=== PATIENT | female | born 1960 | race Caucasian/White ===

== ENCOUNTER 2018-08-18 21:30 | Inpatient (IN) | payer OTHER ==
[~2018-08-18] VITALS: Ht 154.9 cm; Wt 90.7 kg
--- NOTE | ~2018-08-18 | PROC ---
[address] [address] PROCEDURE REPORT Name: EL CALLAHAN Room: [address] IN M.R.#: [id number] Admission: 08/18/18 Attend Phys: Skyler Cantu MD Discharge: 08/22/18 Date of : 64 Report #: [id number] THIS REPORT FOR: //name// For GI report, please see the Provation report in Perceptive 7 content. By: [id number] Records Staff BEN /KAJAL
[~2018-08-18 21:30] MED LIST: ANTIDEPRESSANT; BIAXIN 500 MG500 M2 PO; BUTALB-APAP-CA1 EACH PO; CELEXA20 MG PO; CIPROFLOXACIN500 M1 PO; DIFLUCAN150 MG PO; ERY-TAB333 MG PO; ETODOLAC200 MG; FIORICET 50-301 EACH PO; FLOMAX PO; IBUPROFEN 600600 M1 PO; METHYLPREDNISOLO4 M1 PO; MOBIC7.5 M1 PO; NOHOMEMEDICATIONS; NYSTATIN 1100000 U/M PO; PAXIL 20 MG TAB20 MG PO; PERCOCET 5-3251 EACH PO; REGLAN 10 MG TA10 MG PO; TRAMADOL 50 MG50 MG PO; VALIUM10 MG PO; VENTOLIN HFA INH8 GM INH; XANAX 0.5 MG0.5 MG PO; XANAX XR0.5 MG PO; ZANTAC 150MG T150 M1 PO; ZOLOFT25 MG PO
[2018-08-18 21:35] VITALS: BP 125/70
[2018-08-18] MEDS ORDERED: NAPROSYN500 MG (21:41)
[2018-08-18] MEDS ORDERED: FLAGYL500 MG (21:42)
[2018-08-18] MEDS ORDERED: CIPRO500 MG (21:42)
[2018-08-18 21:58] LABS: URINE BLOOD NEGATIVE (Negative); URINE CLARITY CLEAR; URINE COLOR BROWN; URINE GLUCOSE-RANDOM TRACE (Negative); URINE KETONES 1+ (Negative); URINE LEUKOCYTES-REFLEX 1+ (Negative); URINE PROTEIN 1+ (Negative); URINE SPECIFIC GRAVITY >= 1.030 (1.005-1.030)
[2018-08-18 22:00] LABS: ICTOTEST (BILI CONFIRMATORY) Negative (Negative); URINE BILIRUBIN 2+ (Negative); URINE NITRITE-REFLEX POSITIVE (Negative)
[2018-08-18 22:10] LABS: HYALINE CASTS >10 Many /LPF (None Seen); MUCUS 4-6 Moderate strn/LPF (None Seen); SQUAMOUS >10 Many /LPF (0-3)
[2018-08-18 22:11] LABS: BACTERIA-REFLEX 1-9 Few /HPF (None Seen); CRYSTALS None Seen /LPF (None Seen); URINE RBC 0-2 Rare /HPF (0-2); URINE WBC-REFLEX 0-5 Rare /HPF (0-5)
[2018-08-18 22:14] LABS: ABSOLUTE BASOPHILS 0.1 thou/uL (0.0-0.2); ABSOLUTE EOSINOPHILS 0.1 thou/uL (0.0-0.7); ABSOLUTE LYMPHOCYTES 0.8 thou/uL (0.8-5.3); ABSOLUTE MONOCYTES 0.4 thou/uL (0.0-1.2); ABSOLUTE NEUTROPHILS 5.8 thou/uL (1.6-8.1); BASOPHILS 0.8 %; EOSINOPHILS 1.9 %; HEMATOCRIT 43.4 % (37.0-47.0); HEMOGLOBIN 14.5 gm/dL (12.0-15.0); LYMPHOCYTES 11.4 %; MCH 30.7 pg (26.0-34.0); MCHC 33.3 g/dL (28.0-37.0); MONOCYTES 5.3 %; MPV 9.9 fl. (7.2-11.1); NUCLEATED RBCS 0 /100WBC; PLATELET COUNT* 221 thou/uL (150-400); POLYS 80.6 %; RBC 4.71 mil/uL (4.20-5.00); RDW-CV 13.8 % (10.5-14.5); WBC 7.2 thou/uL (4.0-11.0)
[2018-08-18 22:20] LABS: CALCIUM 9.5 mg/dL (8.5-10.1); CREATININE 1.1 mg/dL (0.6-1.3); POTASSIUM 3.9 mmol/L (3.5-5.1)
[2018-08-18 22:21] LABS: APTT 26.4 Seconds (25.0-31.3); INR 1.1; PROTIME 10.8 Seconds (9.20-11.50)
[2018-08-18 22:25] LABS: ALBUMIN 3.9 g/dL (3.4-5.0); TOTAL BILIRUBIN 0.6 mg/dL (<0.1-1.0); TOTAL PROTEIN 7.8 g/dL (6.4-8.2)
[2018-08-18 23:32] VITALS: BP 123/54
[2018-08-19] VITALS: BP 136/70
--- NOTE | 2018-08-19 04:53 | NUR ---
PATIENT SLEPT WELL AFTER ASSESSMENT COMPLETED. PT WITH NS INFUSING PER DR ORDER IN LT AC. PT USES CALL LIGHT APPROPRIATELY FOR ASSISTANCE TO BATHROOM. PT SAYS URINE IS DARK TEA COLORED; NOT OBSERVED. PT WITH FLUIDS INFUSING PER DR ORDER. PT DENIES PAIN/NAUSEA ON THIS SHIFT. FREQUENTLY USED ITEMS AND CALL LIGHT WITHIN REACH. SIDERAILS UPX2 AND BED ALARM ON. WILL CONTINUE TO MONITOR.
[2018-08-19 08:30] VITALS: BP 91/42
[2018-08-19 08:57] LABS: CHOLESTEROL 92 mg/dL (<200); HDL CHOLESTEROL 46 mg/dL (>40); LDL CHOLESTEROL 40 mg/dL (<100); TRIGLYCERIDE 34 mg/dL (<150); VLDL 7 mg/dL (<40)
[2018-08-19 09:04] LABS: SERUM ASSESSMENT Clear
--- NOTE | 2018-08-19 11:14 | EKG ---
[place] [address] ELECTROCARDIOGRAM REPORT Name: LONDONEL Carmelina Room: [address] ADM IN .R.#: [id number] Admission: 08/18/18 Attend Phys: Skyler Cantu MD Discharge: Date of : 64 Report #: [id number] THIS REPORT FOR: //name// [facility] ED Test Date: 2018-08-18 Test Time: 22:14:48 Pat Name: EL CALLAHAN Department: Room: [facility] Gender: F Food Service Associate: Irene HUTCHINS : 1960 Requested By: Viry Gallagher Order Number: [id number] MD: Ameya Yang Measurements Intervals [place] Rate: 59 P: 33 DC: 133 QRS: 5 QRSD: 93 T: 1 QT: 403 QTc: 400 Interpretive Statements Sinus rhythm Abnormal R-wave progression, early transition Compared to ECG 12/23/2014 22:06:14 No significant changes Electronically Signed On 08-19-2018 11:14:37 CDT by Ameya Yang [email or web address] <ELECTRONICALLY SIGNED> By: Ameya Yang MD, FACC 08/19/18 1114 13 Ameya Yang MD, FAC /EPI
[2018-08-19 12:06] VITALS: BP 118/60
[2018-08-19 13:30] LABS: URINE BILIRUBIN NEGATIVE (Negative); URINE BLOOD NEGATIVE (Negative); URINE CLARITY CLEAR; URINE COLOR YELLOW; URINE GLUCOSE-RANDOM NEGATIVE (Negative); URINE KETONES NEGATIVE (Negative); URINE LEUKOCYTES-REFLEX TRACE (Negative); URINE NITRITE-REFLEX NEGATIVE (Negative); URINE PROTEIN NEGATIVE (Negative); URINE SPECIFIC GRAVITY >= 1.030 (1.005-1.030); URINE UROBILINOGEN 0.2 E.U./dl (0.2-1.0)
--- NOTE | 2018-08-19 13:47 | 2DMMODE ---
[place] [address] 2 D/M-MODE ECHOCARDIOGRAM Name: EL CALLAHAN Room: [address] IN [facility]#: [id number] Admission: 08/18/18 Attend Phys: Skyler Cantu, Discharge: Date of : 64 Date of Service: 08/19/18 1347 Report #: [id number] THIS REPORT FOR: //name// APPROVED REPORT Study performed: 08/19/2018 11:14:18 EXAM: Comprehensive 2D, Doppler, and color-flow Echocardiogram Patient Location: In-Patient Room #: [facility] Status: routine BSA: 1.89 HR: 63 bpm BP: 136/70 mmHg Rhythm: NSR Other Information Study Quality: Good Indications Prior stroke, UTI, encephalopathy Echo Enhancing Agent Indication: Rule out Shunt Agent(s) / Amount(s) Used: Agitated Saline 10 cc 2D Dimensions IVSd: 9.20 (7-11mm) LVOT Diam: 18.82 (18-24mm) LVDd: 42.08 mm PWd: 8.35 (7-11mm) Ascending Ao: 29.19 (22-36mm) LVDs: 27.94 (25-40mm) Aortic Root: 31.35 mm Volumes Left Atrial Volume (Systole) LA ESV Index: 23.40 mL/m2 Aortic Valve AoV Peak Carmine.: 1.36 m/s AO Peak Gr.: 7.36 mmHg LVOT Max P.80 mmHg AO Mean Gr.: 3.62 mmHg LVOT Mean P.07 mmHg LVOT Max V: 1.10 m/s AO V2 VTI: 29.18 cm LVOT Mean V: 0.64 m/s LILIANA (VTI): 2.44 cm2 LVOT V1 VTI: 25.63 [place] [address] 2 D/M-MODE ECHOCARDIOGRAM Name: EL CALLAHAN Room: [address] IN [facility]#: [id number] Admission: 08/18/18 Attend Phys: Skyler Cantu, Discharge: Date of : 64 Date of Service: 08/19/18 1347 Report #: [id number] Mitral Valve E/A Ratio: 1.72 MV Decel. Time: 186.47 ms MV E Max Carmine.: 0.87 m/s MV PHT: 54.08 ms MVA (PHT): 4.07 cm2 TDI E/Lateral E': 5.44 E/Medial E': 8.70 Medial E' Carmine.: 0.10 m/s Lateral E' Carmine.: 0.16 m/s Pulmonary Valve PV Peak Carmine.: 0.75 m/s PV Peak Gr.: 2.28 mmHg Tricuspid Valve RAP Estimate: 5.00 mmHg TR Peak Gr.: 22.84 mmHg RVSP: 28.00 mmHg PA Pressure: 28.00 mmHg Left Ventricle The left ventricle is normal size. There is normal LV segmental wall motion. There is normal left ventricular wall thickness. Left ventricular systolic function is normal. The left ventricular ejection fraction is within the normal range. LVEF is 55-60%. The left ventricular diastolic function is normal. Right Ventricle The right ventricle is normal size. The right ventricular systolic function is normal. Atria The left atrium size is normal. Interatrial septum is intact without evidence of ASD or PFO.Negative bubble study. The right atrium size is normal. Aortic Valve The aortic valve is normal in structure. No aortic regurgitation is present. There is no aortic valvular stenosis. Mitral Valve The mitral valve is normal in structure. Trace mitral regurgitation. No evidence of mitral valve stenosis. Tricuspid Valve The tricuspid valve is normal in structure. [place] [address] 2 D/M-MODE ECHOCARDIOGRAM Name: LONDONEL Room: [address] IN M.R.#: [id number] Admission: 08/18/18 Attend Phys: Skyler Cantu, Discharge: Date of : 64 Date of Service: 08/19/18 1347 Report #: [id number] regurgitation. No pulmonary hypertension. Pulmonic Valve The pulmonary valve is normal in structure. There is no pulmonic valvular regurgitation. Great Vessels The aortic root is normal in size. IVC is normal in size and collapses >50% with inspiration. Pericardium There is no pericardial effusion. <Conclusion> LVEF is 55-60%. There is normal LV segmental wall motion. There is no aortic valvular stenosis. No aortic regurgitation is present. Trace mitral regurgitation. Interatrial septum is intact without evidence of ASD or PFO.Negative bubble study. <ELECTRONICALLY SIGNED> By: Ameya Yang MD, FACC 08/19/181346 46 46 Ameya Yang MD, FACC /INF
--- NOTE | 2018-08-19 15:10 | NUR ---
SW met with pt to complete initial assessment, introduce self, and SW role. Pt was slow to respond but alert an oriented. Pt was out of room earlier in the day for MRI and ultrasound and then during SW assessment, tech came to prep for 2 part stress test. Pt lives at home with her son who is in between jobs. SW to continue to follow to assist with safe dc planning.
[2018-08-19 16:00] VITALS: BP 138/87
--- NOTE | 2018-08-19 18:11 | NUR ---
ALERT AND ORIENTED X4. UP STAND BY ASSIST IN ROOM. IV IS PATENT AND INFUSING. PAIN BEING MANAGED WITH IV PAIN MEDICATION. DENIES NAUSEA. OFF UNIT MULTIPLE TIMES TODAY FOR TESTS. VSS ON ROOM AIR. HOURLY ROUNDS HAVE BEEN MAINTAINED THROUGHOUT SHIFT WHILE ON UNIT. CALL LIGHT IS WITHIN REACH. NURSING WILL CONTINUE TO MONITOR.
[2018-08-19 20:19] VITALS: BP 104/49
[2018-08-20] VITALS: BP 106/77
[2018-08-20 04:00] VITALS: BP 126/51
--- NOTE | 2018-08-20 04:48 | NUR ---
ASSESSMENT COMPLETE. PT ALERT AND ORIENTED X4. PT GIVEN PAIN MEDICATION ONCE DURING THE NIGHT. PT IS ON TELE MONITOR, GUNNER IN 40'S AND 50'S PART OF THE NIGHT. PT ON CONTINOUS PULSE OX DURING THE NIGHT WITH ADEBarneyAUTE SATS ON ROOM AIR. PT DENIES SOA. PT HAS IV FLUIDS INFUSING. PT HAS BEEN NPO SINCE MIDNIGHT FOR STRESS TEST THIS AM. PT IS FALL RISK, BED ALARM ON. TURNS SELF IN BED. UP WITH STANDBY ASSIST TO BATHROOM. SEE ASSESSMENT AND VITALS FOR OTHER DETAILS. CALL LIGHT WITHIN REACH, WILL CONTINUE PLAN OF CARE
[2018-08-20 05:24] LABS: ALBUMIN 3.1 g/dL (3.4-5.0); CREATININE 0.8 mg/dL (0.6-1.3); MAGNESIUM 2.1 mg/dL (1.8-2.4); POTASSIUM 4.8 mmol/L (3.5-5.1); TOTAL BILIRUBIN 0.1 mg/dL (<0.1-1.0); TOTAL PROTEIN 5.9 g/dL (6.4-8.2)
--- NOTE | 2018-08-20 10:16 | NUR ---
PT LEFT UNIT WITH PACU NURSE FOR STRESS TEST, IV PLACED BY INFUSIONS NURSE.
--- NOTE | 2018-08-20 10:59 | NUR ---
PT RETURNED FROM STRESS TEST. PT IS IS ALERT AND ORIENTED. ON ROOM AIR WITH CLEAR LUNG SOUNDS. PT SKIN IS DRY AND INTACT. PT C/O PAIN IN ABD AND HEADACHE. IV FENTANYL ADMINISTERED. WILL CONTINUE TO MONITOR.
--- NOTE | 2018-08-20 12:54 | CARDNUC ---
[place] [address] CARDIAC NUCLEAR IMAGING REPORT Name: EL CALLAHAN Room: [address] IN [facility]#: [id number] Admission: 08/18/18 Attend Phys: Skyler Cantu, Discharge: Date of : 64 Date of Service: 08/20/18 1254 Report #: [id number] THIS REPORT FOR: //name// APPROVED REPORT Imaging Protocol: Rest Tc-99m/Stress Tc-99m 2 days Study performed: 08/19/2018 10:44:00 Indication: Chest pain Patient Location: In-Patient Stress Tech: Deepa Luque Stress Nurse: Dominique Antonio RN NM Tech:NICHOLAS Jorge Ht: 5 ft 0 in Wt: 200 lbs BSA: 1.87 m2 BMI: 39.05 Medical History Medical History: septicemia, diverticulosis Medications: aspirin 81, enoxaprain Allergies: codeine, hydrocodone Cardiac Risk Factors: age Previous Cardiac Procedures: none Exercise History: Indeterminate Resting Data Rest SPECT myocardial perfusion imaging was performed in supine position 30 minutes following the intravenous injection of 39.1 mCi of Tc-99m Sestamibi. Time of rest injection: 1405 Date: 08/19/2018 Time of rest imagin The images were gated to evaluate regional wall motion and calculate left ventricular ejection fraction. Administration Route: IV Administration Site: Right Arm Pharmacologic Stress Pharmacologic stress test was performed by injecting Regadenoson 0.4 mg IV push over 10-15 seconds immediately followed by the intravenous injection of 39.8 mCi of Tc-99m Sestamibi. Time of stress injection: 939 Date: 08/20/2018 Time of stress imagin Administration Route: IV Administration Site: Right Arm Gated Stress SPECT was performed 40 [place] [address] CARDIAC NUCLEAR IMAGING REPORT Name: EL CALLAHAN Room: [address]#: [id number] Admission: 08/18/18 Attend Phys: Skyler Cantu, Discharge: Date of : 64 Date of Service: 08/20/18 1254 Report #: [id number] injection. The images were gated to evaluate regional wall motion and calculate left ventricular ejection fraction. Prone imaging was performed. Stress Test Details Stress Test: Pharmacologic stress testing performed using 0.4 mg of regadenoson per 5 mL given IV over 10 seconds. Reason for pharmacologic stress test: physical limitation. HR Max Heart Rate (APMHR): 164 bpm Resting HR: 57 bpm Target HR (85% APMHR): 139 bpm Max HR Achieved: 114 bpm % of APMHR: 69 Recovery HR: 75 bpm HR response to stress: Normal HR response to stress BP Resting BP: 151/78 mmHg Recovery BP: 139/62 mmHg BP response to stress: Normal blood pressure response to stress. ECG Resting ECG: Sinus Rhythm Stress ECG: Sinus Rhythm ST Change: None Recovery ECG: Sinus Rhythm Clinical Reason for Termination: Completed protocol Stress Symptoms: None Exercise duration: 0 min sec Exercise capacity: 1 METs Nurse Comments pt in weakened state due to septicemia and diverticulitis. unable to walk on treadmeill Stress ECG Conclusion negative ecg Study Quality Study: Good Artifact: [place] [address] CARDIAC NUCLEAR IMAGING REPORT Name: LONDONEL Room: [address] IN [facility]#: [id number] Admission: 08/18/18 Attend Phys: Skyler Cantu, Discharge: Date of : 64 Date of Service: 08/20/18 1254 Report #: [id number] Study Data At rest, the left ventricular ejection fraction was 70%.. Post stress, the left ventricular ejection was 75%.. SSS: 11 SRS: 26 SDS: -15 Perfusion Review of rest data reveals normal perfusion, without perfusion defects.Imaging obtained following vasodilator stress demonstrate a similar, uniform uptake of tracer without defects. Prone imaging was normal. LVEDV is normal.No segental wall motion abnormality seen. Images were reviewed using amaysim. Wall Motion normal all segments Nuclear Conclusion ECG Findings: negative for ischemia Clinical Findings: negative for ischemia Nuclear Findings: negative for ischemia Exercise Capacity: not assessed Left Ventricular Function: normal Risk Study: low Negative perfusion nuclear stress test for infarct or ischemia. Normal LV function. <Conclusion> negative ecg <ELECTRONICALLY SIGNED> By: Ameya Yang MD, FACC 08/20/18 1254 1254 1254 Ameya Yang MD, FACC /INF
[2018-08-20 13:58] VITALS: BP 110/40
[2018-08-20 16:13] VITALS: BP 124/53
--- NOTE | 2018-08-20 17:00 | NUR ---
PT REMAINED ALERT AND ORIENTED THIS SHIFT. PT WAS NPO BEFORE MIDNIGHT FOR STRESS TEST TODAY. STRESS TEST WAS UNREMARKABLE AND EGD POSSIBLE FOR TOMORROW AND OUTPATIENT COLONOSCOPY IN LATE AUGUST. PT HAS C/O ABD PAIN AND HEADACHE. IV FENTANTYL GIVEN WITH PARTIAL PAIN RELEIEF. PT HAS BEEN RESTING IN BED AND DENIES ANY NEEDS AT THIS TIME. HOURLY ROUNDING COMPLETED. CALL LIGHT IN REACH. WILL CONTINUE TO MONITOR.
--- NOTE | 2018-08-20 18:38 | NUR ---
ALL CHARTING AND ASSESSMENTS COMPLETED BY RICHMOND Bonilla RN. REVIEWED AND AGREE WITH CHARTING AND ASSESSMENTS.
[2018-08-21 05:11] LABS: HEMATOCRIT 39.8 % (37.0-47.0); HEMOGLOBIN 13.1 gm/dL (12.0-15.0); MCH 30.5 pg (26.0-34.0); MCV 92.4 fL (80.0-100.0); MPV 10.2 fl. (7.2-11.1); RBC 4.3 mil/uL (4.20-5.00); RDW-CV 13.5 % (10.5-14.5); WBC 4.9 thou/uL (4.0-11.0)
[2018-08-21 05:27] LABS: ALBUMIN 2.9 g/dL (3.4-5.0); CALCIUM 8.4 mg/dL (8.5-10.1); CREATININE 0.8 mg/dL (0.6-1.3); POTASSIUM 4.4 mmol/L (3.5-5.1); TOTAL BILIRUBIN 0.2 mg/dL (<0.1-1.0); TOTAL PROTEIN 5.5 g/dL (6.4-8.2)
[2018-08-21 07:10] VITALS: BP 124/53
[2018-08-21 09:30] VITALS: BP 119/52
[2018-08-21 10:29] VITALS: BP 138/73
--- NOTE | 2018-08-21 12:06 | CON ---
[address] [address] CONSULTATION Name: EL CALLAHAN Room: [address] IN [facility].#: [id number] Admission: 08/18/18 Attend Phys: Skyler Cantu MD Discharge: Date of : 64 Report #: [id number] THIS REPORT FOR: //name// CC: Skylre Pillai DATE OF SERVICE: 08/20/2018 INFECTIOUS DISEASE CONSULTATION ATTENDING PHYSICIAN: Skyler Cantu M.D. REASON FOR EVALUATION: Acute diverticulitis. HISTORY OF PRESENT ILLNESS: Chart reviewed, patient examined. This is a 58-year-old woman with a known history of diverticulitis, last episode this would be the third roughly 10 years ago. She developed actually right-sided lower abdominal pain that radiated, now it is associated with the left side. She was prescribed a combination therapy with ciprofloxacin and metronidazole. She had developed some encephalopathy with persistent pain and some lightheadedness. It is not clear that she had fevers. She was evaluated. CT confirmed changes distal descending colon and proximal sigmoid colon inflammation without evidence of mass or abscess or perforation. She was started on ceftriaxone. Clinically, she has improved. She has some degree of residual pain. Again, she is not encephalopathic at this point. Denies any pulmonary related complaints. ALLERGIES: HYDROCODONE AND CODEINE. CURRENT MEDICATIONS: Include gabapentin, alprazolam, enoxaparin, pantoprazole, aspirin, paroxetine, ceftriaxone, ondansetron. PAST MEDICAL HISTORY: As described above, history of diverticulitis, history of pancreatitis, migraines, previous cholecystectomy, . SOCIAL HISTORY: Nonsmoker, no ethanol. FAMILY HISTORY: Noncontributory. REVIEW OF SYSTEMS: As above. PHYSICAL EXAMINATION: GENERAL: She is in mild to moderate distress. She is not encephalopathic. She appears generally fairly well nourished. VITAL SIGNS: Temperature 98.4, pulse 50, respirations 17, blood pressure 124/53. [place] [address] CONSULTATION Name: EL CALLAHAN Room: [address]#: [id number] Admission: 08/18/18 Attend Phys: Skyler Cantu MD Discharge: Date of : 64 Report #: [id number] SKIN: Warm, dry, no rash. HEENT: Unremarkable. NECK: Supple. LUNGS: Clear to auscultation. HEART: Regular rate and rhythm without murmur. ABDOMEN: Soft, really no peritoneal signs. There is no percussible tenderness. GENITOURINARY: Deferred. RECTAL: Deferred. LABORATORY DATA: Initial urinalysis, 0-5 white cells. CBC: White count 7.2, H and H 14.5 and 43.4 and platelets of 221. PT of 10.8, INR of 1.1. Electrolytes: Sodium 141, potassium 3.9, chloride 105, bicarbonate is 23, anion gap of 13, BUN and creatinine 21 and 1.0, glucose of 110. LFTs unremarkable. Albumin 3.9, total protein 7.8, estimated GFR of 51. Chest x-ray, no acute processes. CT abdomen and pelvis as described above. TSH of 2.669. ASSESSMENT: Acute diverticulitis in the setting of a previous history of these 2 episodes. We will continue empiric therapy with ceftriaxone. She seemed to respond clinically, certainly raises concern about possible neuropsychiatric effects related to the quinolones that should be something if possible to be avoided in the future. We will see how she responds to current approach, likely transition to oral antibiotics within a few days. <ELECTRONICALLY SIGNED> By: Gregory Waller MD 08/21/18 1206 1646 [id number] Waller MD /nt
[2018-08-21 12:30] VITALS: BP 147/64
--- NOTE | 2018-08-21 18:16 | NUR ---
PATIENT RESTING IN BED. PATIENT HAD COMPLAINTS OF HEADACHE WITH PARITAL RELIEF OF PAIN WITH MEDICATION. PATIENT HAD EGD THIS AM WITHOUT INCIDENT. PATIENT TOLERATING REGULAR DIET. PATIENT IS UP AD SHIVA IN ROOM. PATIENT DENIES ANY NEEDS AT THIS TIME. CALL LIGHT WITHIN REACH. WILL CONTINUE TO MONITOR.
[2018-08-22 04:07] LABS: HEMATOCRIT 39.4 % (37.0-47.0); HEMOGLOBIN 12.9 gm/dL (12.0-15.0); MCH 30.2 pg (26.0-34.0); MCHC 32.8 g/dL (28.0-37.0); MCV 92.1 fL (80.0-100.0); MPV 9.9 fl. (7.2-11.1); RBC 4.28 mil/uL (4.20-5.00); RDW-CV 13.3 % (10.5-14.5); WBC 5.9 thou/uL (4.0-11.0)
[2018-08-22 04:14] LABS: CALCIUM 8.8 mg/dL (8.5-10.1); CREATININE 0.8 mg/dL (0.6-1.3); MAGNESIUM 2.1 mg/dL (1.8-2.4); POTASSIUM 4.6 mmol/L (3.5-5.1)
--- NOTE | 2018-08-22 04:55 | NUR ---
assumed patient care at 1915. Patient alert and oriented times four. VSS. No complaints of pain or discomfort noted. Patient requested and received a box lunch. Patient was able to eat this without difficulty and di d not have any complaints of nausea or emesis through night. IV remains saline locked. Patient able to ambulate independently in room. pulmonology technician and hourly rounding comleted as documented.
[2018-08-22 09:51] VITALS: BP 147/64
[2018-08-22] MEDS ORDERED: AUGMENTIN 875-1 EACH PO (10:28)
[2018-08-22 10:37] VITALS: BP 111/57
[2018-08-22 11:26] VITALS: BP 147/64
[2018-08-22] MEDS ORDERED: PROTONIX40 M1 PO (11:39)
--- NOTE | 2018-08-22 11:46 | NUR ---
PATIENT IS ALERT AND ORIENTED TODAY VERY PLEASANT. VITAL SIGNS STABLE ON ROOM AIR. NO COMPLAINTS OF PAIN TODAY, TOLERATED FOOD WELL TODAY. PATIENT IS UP AD SHIVA IN ROOM. PATIENT IS BEING DISCHARGED TO HOME, DISCHARGED INSTRUCTIONS GIVEN WITH PRESCRIPTIONS, QUESTIONS ANSWERED FOR PATIENT.
[2018-08-22 11:48] VITALS: BP 147/64
--- NOTE | 2018-08-22 19:14 | CON ---
[address] [address] CONSULTATION Name: EL CALLAHAN Room: [address] IN M.R.#: [id number] Admission: 08/18/18 Attend Phys: Skyler Cantu MD Discharge: 08/22/18 Date of : 64 Report #: [id number] THIS REPORT FOR: //name// CC: Skyler Pillai DATE OF SERVICE: 08/19/2018 HISTORY OF PRESENT ILLNESS: This is a 58-year-old female patient who was evaluated by me for an episode of difficulty interpreting what is written on the board. It started spontaneously without any trauma. 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 She is better. She has been under a lot of stress recently, stresses at home as well as at work. REVIEW OF SYSTEMS: She does have a history of what she describes as migraine. She is having those more frequently now, but she had history of migraine for long time. Migraine was not associated with any focal neurological symptoms best I can tell. There is a question of history of seizures, but it was treated with gabapentin. I cannot get any further history in that regard. A 14-point review of system was carried out. It is positive for pretty significant stress. She feels back better, but not completely back to normal. PAST MEDICAL HISTORY: Positive for migraine. FAMILY HISTORY: Negative for early age strokes. 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 She does not smoke or drink any alcohol. PHYSICAL EXAMINATION: Indicate that this patient is alert, responsive, oriented, able to follow simple and complex command. Cranial nerve examination 2-12 looks unremarkable. Strength, sensation, reflexes and tone is symmetrical. There is no meningeal sign in this patient. There is no cerebellar sign. She is moderately built individual and her hearing and vision looks adequate. Cardiac examination is unremarkable. No respiratory difficulty or rhonchi. Pulses are palpable. She has no edema, cyanosis or jaundice. Blood pressure is 118/60, respiration is 16, pulse is 60, temperature is 98. LABORATORY DATA: Indicated normal white count. She did have an MRI of the brain and MRA of the head that was reviewed and that was unremarkable. 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 It is unlikely that this patient has any significant atherosclerotic disease. We will work her up for that[place] [address] CONSULTATION Name: EL CALLAHAN Room: [address] IN ..#: [id number] Admission: 08/18/18 Attend Phys: Skyler Cantu MD Discharge: 08/22/18 Date of : 64 Report #: [id number] poorly defined history of seizures. Until we can get the records, it will be unlikely that the episode she had was a seizure. RECOMMENDATIONS: 1. EEG. 2. MRI. 3. Try to get prior records to see if they were real seizures or not. 4. Depending upon that she will need some further workup. Thank you very much for this referral and we will follow the patient along with you. <ELECTRONICALLY SIGNED> By: Fabio Gautam MD 08/22/18 1914 1227 1605Fabio Gautam MD /nt
--- NOTE | 2018-08-22 19:14 | EEG ---
[address] [address] EEG STUDY REPORT Name: EL CALLAHAN Room: [address] IN M.R.#: [id number] Admission: 08/18/18 Attend Phys: Skyler Cantu MD Discharge: 08/22/18 Date of : 64 Report #: [id number] THIS REPORT FOR: //name// CC: Skyler Pillai DATE OF SERVICE: 08/19/2018 This patient is being evaluated for confusion and shakiness. EEG was done by placing the electrode by standard 10-20 system of electrode placement. Both referential and sequential montages were used for recording. Background activity in this patient's EEG is about 11 Hz and 40 microvolts. It is a symmetrical activity. Photic stimulation is unremarkable. Throughout the record, no active epileptiform activity was noticed. IMPRESSION: This patient's EEG is unremarkable. <ELECTRONICALLY SIGNED> By: Fabio Gautam MD 08/22/18 1914 1638 1712Pemily Gautam MD /nt
--- NOTE | 2018-08-26 09:10 | PATH ---
[address] [address] PATHOLOGY RPT PROCEDURE Name: EL CALLAHAN Room: [address] IN M.R.#: [id number] Admission: 08/18/18 Date of : 64 Discharge: 08/22/18 Report #: [id number] Path Case #: [id number] [facility] Accession Number: [id number] . 01 Material submitted: . ANTRAL BIOPSY FOR H. PYLORI AND EROSIVE GASTRITIS . 01 Clinician provided ICD-10: K29.60 . 01 Clinical history: . None provided . 02 Diagnosis: Antrum, biopsy: - Reactive gastropathy with chronic inflammation. - An H. pylori immunostain is negative (block A1; appropriate control). . (MAP:rosa; 08/22/2018) MBTiara/08/22/2018 . 02 Electronically signed: . Yannick Peres MD, Pathologist NPI- [id number] . 01 Gross description: . Received in formalin labeled "El Callahan, antral biopsy for H. pylori for erosive gastritis," are 2 segments of bennett soft tissue measuring 0.9 x 0.2 x 0.2 cm in aggregate dimensions and ranging from 0.4 to 0.5 cm in maximum dimension. The specimen is submitted entirely in cassette A1. (TSD; 08/21/2018) TOB/TOB . 02 Pathologist provided ICD-10: K29.50, K31.9 . 02 CPT . 061217, [id number] Specimen Comment: A courtesy copy of this report has been sent to Specimen Comment: [phone], , . Specimen Comment: Report sent to ,DR GALEANA / DR SAL Performed at: [address], [place], [place] [id number] MD Dominik Valladares MD Phone: [phone] Performed at: [facility] [address] [place], [place] [id number] [address] [address] PATHOLOGY RPT PROCEDURE Name: EL CALLAHAN Room: [address]#: [id number] Admission: 08/18/18 Date of : 64 Discharge: 08/22/18 Report #: [id number] Path Case #: [id number] MD Zachary Varma [place] Phone: [phone]
--- NOTE | 2018-09-01 12:22 | CON ---
[address] [address] CONSULTATION Name: LONDONLASHONDACHLOÉ Carmelina Room: [address] M.R.#: [id number] Admission: 08/18/18 Attend Phys: Skyler Cnatu MD Discharge: 08/22/18 Date of : 64 Report #: [id number] THIS REPORT FOR: //name// CC: Skyler Pillai DO DATE OF SERVICE: 08/19/2018 REFERRING PHYSICIAN: Dr. Skyler Cantu. REASON FOR CONSULTATION: Abdominal pain. IMPRESSION: 1. Mental status changes, most suspicious for bacteremia/septicemia with shaking chills and sweats versus less likely related to medication (Flagyl). 2. Acute proximal sigmoid diverticulitis, improving. 3. Solid dysphagia with history of previous EGDs and dilations in the past. 4. Obesity. RECOMMENDATIONS: 1. Continue the patient on her current regimen of IV fluids, IV antibiotics, etc. After Flagyl was responsible for mental status changes and Rocephin will not be enough to cover her diverticulitis, for this reason, I would like to have Infectious Disease weighing on the patient to see and make recommendations regarding an oral regimen that will be good upon discharge such as Augmentin. 2. We are waiting for some results of her stress test that is ordered for tomorrow. 3. We will proceed with upper endoscopy and possible dilation in a couple of days if it is okay from a cardiovascular standpoint. 4. We will schedule an outpatient colonoscopy in late August or early September to investigate this recent bout of diverticulitis. At that time, I will tattoo the proximal and distal extents of the same in case this becomes a recurrent problem, necessitating surgical intervention. I have discussed the plans with the patient well and she is agreeable to the same. HISTORY OF PRESENT ILLNESS: The patient is a very pleasant 58-year-old white female who was being treated for a bout of sigmoid diverticulitis with antibiotics and started having problem with shaking chills and fever. She also had problem with continued abdominal pain, nausea and vomiting. She was not eating all that well. She also had problem with confusion. She has had fevers and chills as well. She was not sure if this was related to medication or if there were some other issues. Her mental status has improved while being in the hospital. She never had any problem with diverticulitis in the past. She has never been hospitalized for the same. [place] [address] CONSULTATION Name: EL CALLAHAN Room: [address]#: [id number] Admission: 08/18/18 Attend Phys: Skyler Cantu MD Discharge: 08/22/18 Date of : 64 Report #: [id number] her upper or lower GI tract other than intermittent dysphagia. She was seen through the ER and admitted for further evaluation and treatment. ALLERGIES: CODEINE AND HYDROCODONE. MEDICATIONS: At home include alprazolam, paroxetine, naproxen. She was on Cipro and Flagyl. PAST MEDICAL HISTORY: Remarkable for history of migraines. She has had previous , cholecystectomy. She had pancreatitis. She has had some diverticulitis in the past. There is a question about whether she had seizures or not in the past. SOCIAL HISTORY: The patient does not smoke or drink. FAMILY HISTORY: Negative for colon polyps or colon cancer. PHYSICAL EXAMINATION: GENERAL: Pleasant 58-year-old white female who is awake and alert. CARDIOPULMONARY: Revealed a regular rate and rhythm. LUNGS: Clear. ABDOMEN: Soft and not tender. No rebound or guarding was noted. LABORATORY DATA: From admission revealed a white count of 7.2, hemoglobin 14.5, platelet count 221,000, MCV is 92 and RDW 13.8. Her sodium is 141, potassium 3.9, chloride 105, bicarbonate is 23. Her BUN is 21, creatinine 1.1. Her total bilirubin 0.6, alkaline phosphatase is 68, AST is 23, ALT 26. Her albumin is 3.9. Lipase 227. CT scan of the abdomen and pelvis performed on 08/18/2018 revealed diverticulitis involving the distal descending and proximal sigmoid colon without evidence for any pericolonic inflammatory mass, abscess or any other issues. DISCUSSION: At the present time, the patient appears to be doing better on Rocephin at this point in time. I would like to have input from Infectious Diseases as to whether or not anything else needs to be done. We will hold off on any studies at this point in time other than upper endoscopy if her stress test comes out negative. I have discussed the plans with the patient well and she is agreeable with this plan as above. <ELECTRONICALLY SIGNED> By: Levi Parker DO 09/01/18 1222 [id number] Parker DO /nt
== END 2018-08-22 11:50 | disposition home or self-care (01) | DRG 392 ==
LOC: M.ERS 21:30 → M.3W 22:47 → M.TBA-ER 22:47 → M.3W 23:39
PROVIDERS: Internal Medicine; Physician Assistant; ADMIT Internal Medicine
PROC: 0D758ZZ Dilation of Esophagus, Via Natural or Artificial Opening Endoscopic (ICD-10-PCS; principal; 2018-08-21)
PROC: 0DB68ZX Excision of Stomach, Via Natural or Artificial Opening Endoscopic, Diagnostic (ICD-10-PCS; principal; 2018-08-21)
DX: K57.32 Diverticulitis of large intestine without perforation or abscess without bleeding (principal); N39.0 Urinary tract infection, site not specified; G93.40 Encephalopathy, unspecified; G43.909 Migraine, unspecified, not intractable, without status migrainosus; R13.10 Dysphagia, unspecified; E66.9 Obesity, unspecified; K21.0 Gastro-esophageal reflux disease with esophagitis; K22.2 Esophageal obstruction; L53.9 Erythematous condition, unspecified; Z88.6 Allergy status to analgesic agent; Z90.49 Acquired absence of other specified parts of digestive tract; Z68.37 Body mass index [BMI] 37.0-37.9, adult; Z79.82 Long term (current) use of aspirin; Z79.899 Other long term (current) drug therapy

== ENCOUNTER 2021-01-30 15:25 | Emergency (ER) | payer OTHER ==
[~2021-01-30] VITALS: Ht 154.9 cm; Wt 90.7 kg
[~2021-01-30 15:25] MED LIST changes: +AUGMENTIN 875-1 EACH PO; +CIPRO500 MG; +FLAGYL500 MG; +NAPROSYN500 MG; +PROTONIX40 M1 PO
[2021-01-30 16:04] LABS: URINE BILIRUBIN NEGATIVE (Negative); URINE BLOOD NEGATIVE (Negative); URINE CLARITY CLEAR; URINE COLOR YELLOW; URINE GLUCOSE-RANDOM NEGATIVE (Negative); URINE KETONES TRACE (Negative); URINE LEUKOCYTES-REFLEX TRACE (Negative); URINE NITRITE-REFLEX NEGATIVE (Negative); URINE PROTEIN TRACE (Negative); URINE SPECIFIC GRAVITY 1.025 (1.005-1.030); URINE UROBILINOGEN 0.2 E.U./dl (0.2-1.0)
[2021-01-30 16:05] LABS: ABSOLUTE EOSINOPHILS 0.2 thou/uL (0.0-0.7); ABSOLUTE LYMPHOCYTES 1.2 thou/uL (0.8-5.3); ABSOLUTE MONOCYTES 0.7 thou/uL (0.0-1.2); ABSOLUTE NEUTROPHILS 5.1 thou/uL (1.6-8.1); BASOPHILS 0.6 %; HEMATOCRIT 42.2 % (37.0-47.0); HEMOGLOBIN 14.2 gm/dL (12.0-15.0); LYMPHOCYTES 16.6 %; MCH 31.1 pg (26.0-34.0); MCHC 33.8 g/dL (28.0-37.0); MCV 92.1 fL (80.0-100.0); MONOCYTES 9.6 %; MPV 9.2 fl. (7.2-11.1); NUCLEATED RBCS 0 /100WBC; PLATELET COUNT* 223 thou/uL (150-400); POLYS 70.2 %; RBC 4.58 mil/uL (4.20-5.00); RDW-CV 13.8 % (10.5-14.5); WBC 7.3 thou/uL (4.0-11.0)
[2021-01-30 16:09] LABS: SQUAMOUS >10 Many /LPF (0-3)
[2021-01-30 16:10] LABS: BACTERIA-REFLEX >30 Many /HPF (None Seen); CASTS None Seen /LPF (None Seen); CRYSTALS None Seen /LPF (None Seen); MUCUS 4-6 Moderate strn/LPF (None Seen); URINE RBC None Seen /HPF (0-2); URINE WBC-REFLEX 6-15 Few /HPF (0-5)
[2021-01-30 16:14] LABS: CALCIUM 9.6 mg/dL (8.5-10.1); CREATININE 0.9 mg/dL (0.6-1.3)
[2021-01-30 16:18] LABS: ALBUMIN 3.7 g/dL (3.4-5.0); TOTAL BILIRUBIN 0.5 mg/dL (<0.1-1.0); TOTAL PROTEIN 8.2 g/dL (6.4-8.2)
[2021-01-30] MEDS ORDERED: PHENERGAN 25 MG25 M1 PO ×2 (16:45→16:47)
[2021-01-30] MEDS ORDERED: BUTALB-APAP-CA1 EACH PO ×2 (16:45→16:47)
[2021-01-30 17:05] VITALS: BP 111/42
== END 2021-01-30 17:07 | disposition home or self-care (01) ==
LOC: M.ERS 15:25
PROVIDERS: Nurse Practitioner Family
DX: A08.4 Viral intestinal infection, unspecified (principal); J98.8 Other specified respiratory disorders; G43.909 Migraine, unspecified, not intractable, without status migrainosus; Z20.822 Contact with and (suspected) exposure to COVID-19; Z88.5 Allergy status to narcotic agent; Z98.890 Other specified postprocedural states; Z90.49 Acquired absence of other specified parts of digestive tract